=== PATIENT | male | born 2000 | race Caucasian/White ===

== ENCOUNTER 2019-11-26 13:19 | Emergency (ER) | payer OTHER, SELFPAY ==
[2019-11-26 13:29] VITALS: BP 125/61; PULSE 100; RESP 16; TEMP 38; O2SAT 100
--- NOTE | 2019-11-26 14:40 | ED.GENADULT ---
HPI - General Adult General Chief complaint: Upper Respiratory Infection Stated complaint: sore throat/body aches/fatigue Time Seen by Provider: 11/26/19 14:40 Source: patient and RN notes reviewed Mode of arrival: ambulatory Limitations: no limitations History of Present Illness HPI narrative: 19-year-old male with complaints of upper respiratory infection symptoms, body aches, sore throat, and intermittent headaches (not the worst of his life) for the past 7 days. Ibuprofen (last this am) with little relief. Symptoms increased today with facial pressure, Chills, and fatigue ( had an episodes of feeling faint and chills today at work prior to coming to [facility]. No syncopal episodes, dizziness, or seizure activities. Rhinorrhea and nasal congestion. Exacerbating factors consist of smoke exposure. Sore throat bilateral. Hurts to swallow. No high fevers, drooling, neck, or throat swelling. No nausea, vomiting, and abdominal pain. Denies chest pain, dyspnea, coughing up blood, difficulty swallowing, jaw pain, dental pain, facial pain, foreign body sensation, and rash. Remains active. Some parts of this dictation were generated by voice recognition software and may contain typographical and/or grammatical inaccuracies. Related Data Allergies Allergy/AdvReac Type Severity Reaction Status Date / Time No Known Allergies Allergy Verified 11/26/19 13:28 Review of Systems Review of Systems: Narrative: CONSTITUTIONAL: Complains of fever, chills. Denies sweats. EYES: Denies visual changes, redness, discharge. ENT: Complains of rhinorrhea, congestion, sore throat. Denies otalgia. CARDIOVASCULAR: Denies chest pain, palpitations, edema. RESPIRATORY: Denies dyspnea, wheezing, cough. GASTROINTESTINAL: Denies abdominal pain, nausea, vomiting, diarrhea. GENITOURINARY: Denies dysuria, hematuria, abnormal discharge. SKIN: Denies rash or itching. MUSCULOSKELETAL: Denies acute back pain, joint pain. Complains of myalgia. NEUROLOGIC: Denies numbness or focal weakness. PSYCHIATRIC: Denies anxiety or depression. Complains of intermittent VALDIVIA. All systems reviewed & are unremarkable except as noted in HPI and below. [facility] Past Medical History Medical History (Updated 11/27/19 @ 00:00 by Saray Yanez) No significant past medical history Surgical History Surgical History (Updated 11/26/19 @ 14:50 by RJ Richardson) History of adenoidectomy History of tonsillectomy Family History Family History (Updated 11/26/19 @ 14:50 by RJ Richardson) Grandparent Diabetes mellitus Social History Social History (Updated 11/26/19 @ 14:51 by RJ Richardson) Smoking status: Never smoker Second hand tobacco smoke exposure: Yes Alcohol intake: never Substance use: never Living arrangements: with family Occupation/Education: student Gender identity (if verbalized by the patient): Male Comments At time of signature, agree with nurse past medical, surgical, social, and family history. There is no relevant family history pertinent to the presenting complaint. Exam Narrative: Exam Narrative: GENERAL: This is a well-nourished, well-developed patient, in no apparent distress. Speaks in full sentences and ambulates with steady gait without dyspnea. HEAD: normocephalic, atraumatic. EYES: PERRL. Sclera clear/white. Vision is grossly intact. EARS: External ears normal, auditory canals clear and without drainage, TMs normal without perforation. Hearing grossly intact. NOSE: External nose normal with no obvious nasal discharge, nares with mild redness and enlarged turbinates, clear rhinorrhea. THROAT: Mucous membranes moist, posterior pharynx with PND, mild erythema, no exudate, and no tonsils. No drainage, no concern for Peritonsillar abscess. No drooling, trismus, or neck swelling. NECK: Neck supple, non-tender without lymphadenopathy, masses or thyromegaly. CARDIOVASCULAR: Regular rate and rhythm without m
== END 2019-11-26 14:54 | disposition home or self-care (01) ==
PROVIDERS: Emergency Provider Nurse Practitioner Family
DX: J06.9 Acute upper respiratory infection, unspecified (principal)
CPT/HCPCS: 99203; G0463